=== PATIENT | female | born 1980 | race Caucasian/White ===

== ENCOUNTER 2017-02-04 22:05 | Inpatient (IN) | payer MEDICARE ==
[~2017-02-04] VITALS: Ht 160 cm; Wt 60.3 kg
[~2017-02-04 22:05] MED LIST: ALBUTEROL2.5 MG/0.5 INH; ALLEGRA30 MG PO; AMBIEN10 M1 PO; AMOXICILLIN500 MG PO; AMOXIL500 MG PO; ATIVAN1 MG PO; B12,B-12,B 12500 MC1 PO; BACTRIM DS 8001 TA1 PO; BENADRYL25 MG PO; CARAFATE1 GM/10 ML PO; CEFADROXIL500 M1 PO; CEPHALEXIN500 M1 PO; CIPRO500 MG PO; CLARITIN-D 10 M1 T21 PO; CLARITIN-D 12 H1 TAB PO; CLINDAMYCIN HC300 MG PO; CLORAZEPATE DI7.5 MG PO; CLORAZEPATE7.5 MG PO; FLONASE 0.05% 121 EA NAS; HYDROCODONE BIT1 T11 PO; KEFLEX500 M1 PO; KENALOG 0.1% C454 GM PO; KENALOG0.1% TP; LOMOTIL 0.025 M1 TA1 PO; MEDROL DOSEPAK4 MG PO; MOTRIN600 MG PO; MOTRIN800 MG PO; MULTI VITAMINS1 TAB PO; MULTIVITAMIN FO1 CAP PO; NAPROSYN500 MG PO; NORCO 5-325 TA1 EACH PO; OHM ALLERGY REL10 MG PO; OMEPRAZOLE MAGN20 M1 PO; PREDNICOT20 MG PO; PREDNISONE10 MG PO; PREDNISONE20 MG PO; PREPARATION H1 SUP R; PRILOSEC20 M1 PO; PROAIR HFA8.5 GM IH; PROVERA10 MG PO; ROBITUSSIN AC 110 ML PO; SEPTRA DS 800 M1 TAB PO; SERTRALINE HYDR50 MG PO; SILVADENE,SSD C50 GM T; Tranxene7.5 MG PO; ULTRAM50 MG PO; VICODIN 5/500 505 MG PO; VICODIN 500 MG-1 TAB PO; VITAMIN C500 MG PO; VITAMINS & MINE1 TAB; ZANTAC 150150 MG PO; ZITHROMAX Z PA250 MG PO; ZITHROMAX250 MG PO; ZOFRAN ODT4 MG SL; ZOLOFT50 MG PO
[2017-02-04 22:16] VITALS: BP 132/84
[2017-02-04 22:23] LABS: BASO % 0.4 % (0.0-1.0); EOS # 0.3 10*3/uL (0.0-0.4); EOS % 4.1 % (1.0-4.0); HEMATOCRIT 28.4 % (37.0-47.0); HEMOGLOBIN 8.8 g/dl (12.0-16.0); LYMPH # 3.4 10*3/uL (1.3-4.4); LYMPH % 41.7 % (27.0-41.0); MEAN CELL VOLUME 74.9 fl (81.0-99.0); MEAN CORPUSCULAR HGB 23.2 pg (27.0-31.0); MEAN PLATELET VOLUME 9.4 fl (9.6-12.3); MONO # 0.9 10*3/uL (0.1-1.0); MONO % 10.5 % (3.0-9.0); NEUT # 3.5 10*3/uL (2.3-7.9); NEUT % 43.1 % (47.0-73.0); PLATELET COUNT AUTOMATED 419 10*3/uL (130-400); RED BLOOD COUNT 3.79 10*6/uL (4.10-5.10); RED CELL DISTRI WIDTH 17.2 % (0-14.5); WHITE BLOOD COUNT 8.1 10*3/uL (4.8-10.8)
[2017-02-04 22:35] LABS: INTERNATIONAL NORM RATIO 0.9 (2.0-3.5); PROTHROMBIN TIME 9.9 SECONDS (9.0-12.4)
[2017-02-04 22:40] LABS: ALBUMIN 3.2 gm/dl (3.1-4.5); ALKALINE PHOSPHATASE 92 U/L (45-117); BILIRUBIN, TOTAL 0.3 mg/dl (0.2-1.0); BUN 10 mg/dl (7-24); CARBON DIOXIDE 25 mmol/L (21-32); CHLORIDE 107 mmol/L (98-107); EST GLOM FILT AFRICAN AMERICAN > 60 ml/min; GLUCOSE 99 mg/dL (65-99); MAGNESIUM 2.1 mg/dL (1.5-2.1); POTASSIUM 3.7 mmol/L (3.5-5.1); SGOT/AST 21 IU/L (3-35); SGPT/ALT 21 U/L (12-78); SODIUM 137 mmol/L (136-145); TOTAL PROTEIN 7.1 gm/dL (6.4-8.2)
[2017-02-04 22:44] LABS: TROPONIN I < 0.015 ng/ml (<0.045)
[2017-02-04 23:26] VITALS: BP 124/48
[2017-02-05 01:53] VITALS: BP 118/79
[2017-02-05 04:08] LABS: BASO % 0.5 % (0.0-1.0); EOS # 0.3 10*3/uL (0.0-0.4); EOS % 4.5 % (1.0-4.0); HEMATOCRIT 27.7 % (37.0-47.0); HEMOGLOBIN 8.7 g/dl (12.0-16.0); LYMPH # 3.3 10*3/uL (1.3-4.4); LYMPH % 43.3 % (27.0-41.0); MEAN CELL VOLUME 75.1 fl (81.0-99.0); MEAN CORPUSCULAR HGB 23.6 pg (27.0-31.0); MEAN CORPUSCULAR HGB CONC 31.4 g/dl (33.0-37.0); MONO # 0.7 10*3/uL (0.1-1.0); MONO % 9.9 % (3.0-9.0); NEUT # 3.1 10*3/uL (2.3-7.9); NEUT % 41.7 % (47.0-73.0); PLATELET COUNT AUTOMATED 419 10*3/uL (130-400); RED BLOOD COUNT 3.69 10*6/uL (4.10-5.10); RED CELL DISTRI WIDTH 17.1 % (0-14.5); WHITE BLOOD COUNT 7.5 10*3/uL (4.8-10.8)
[2017-02-05 04:20] LABS: BUN 10 mg/dl (7-24); CARBON DIOXIDE 23 mmol/L (21-32); CHLORIDE 108 mmol/L (98-107); EST GLOM FILT AFRICAN AMERICAN > 60 ml/min; GLUCOSE 99 mg/dL (65-99); POTASSIUM 3.5 mmol/L (3.5-5.1); SODIUM 139 mmol/L (136-145)
[2017-02-05 04:26] LABS: CHOLESTEROL 129 mg/dL (<200); FREE T4 1.14 ng/dl (0.76-1.46); HDL CHOLESTEROL 42 mg/dl (40-60); LDL CHOLESTEROL 72 mg/dL (9-159); TRIGLYCERIDES 74 mg/dl (<150); VLDL CHOLESTEROL 15 mg/dL (6-40)
[2017-02-05 04:28] LABS: HEMOGLOBIN A1c 6.1 % (4.8-5.6)
[2017-02-05 08:00] VITALS: BP 125/79
[2017-02-05 08:27] LABS: VITAMIN D, 25-HYDROXY 34.3 ng/mL (30-100)
[2017-02-05 08:28] LABS: FOLIC ACID 8.27 ng/mL (>5.38)
[2017-02-05] MEDS ORDERED: PRILOSEC20 M1 PO (10:45)
[2017-02-05] MEDS ORDERED: CLARITIN10 MG PO (10:46)
[2017-02-05] MEDS ORDERED: VITAMIN B12 1541 TAB PO (10:46)
[2017-02-05 12:00] VITALS: BP 99/56
[2017-02-05 16:00] VITALS: BP 108/56
[2017-02-05 19:50] VITALS: BP 95/56
[2017-02-06] VITALS: BP 112/77
[2017-02-06 08:00] VITALS: BP 115/78
[2017-02-06 12:00] VITALS: BP 122/76
== END 2017-02-06 14:38 | disposition home or self-care (01) | DRG 391 ==
LOC: ED 22:05 → EDHOLD 02-05 00:26 → 4E 02-05 00:26
PROVIDERS: Emergency Medicine Emergency Medical Services; Family Medicine
DX: K21.9 Gastro-esophageal reflux disease without esophagitis (principal); J18.9 Pneumonia, unspecified organism; E44.0 Moderate protein-calorie malnutrition; F33.40 Major depressive disorder, recurrent, in remission, unspecified; R07.89 Other chest pain; F41.9 Anxiety disorder, unspecified; J45.20 Mild intermittent asthma, uncomplicated; D50.9 Iron deficiency anemia, unspecified; R73.03 Prediabetes; Z79.899 Other long term (current) drug therapy; Z91.018 Allergy to other foods; Z82.49 Family history of ischemic heart disease and other diseases of the circulatory system; Z82.3 Family history of stroke; Z80.8 Family history of malignant neoplasm of other organs or systems; Z83.3 Family history of diabetes mellitus

== ENCOUNTER → 2017-04-17 | Day surgery (SDC) | payer MEDICARE ==
[~2017-04-17] VITALS: Ht 157.4 cm; Wt 54.4 kg
[~2017-04-17] MED LIST changes: +CLARITIN10 MG PO; +VITAMIN B12 1541 TAB PO
--- NOTE | ~2017-04-17 | O ---
[place], [place] OPERATIVE NOTE NAME: SIMEON PHELPS UNIT #: [id number] ROOM: DOCTOR: LIZETH MENENDEZ MD BIRTHDATE: [birth year] DOS: GASTRO-ENDOSCOPIC REPORT HISTORY OF PRESENT ILLNESS: A 37-year-old patient who has presented with chief complaint of atypical chest pain, epigastric distress, undergoing investigation. Cardiac workup has been negative. The patient on omeprazole. ALLERGIES: To no known medication. FAMILY HISTORY: Noncontributory. PAST SURGICAL HISTORY: Tubal ligation. PAST MEDICAL HISTORY: Gastritis, anxiety. SOCIAL HISTORY: Nonsmoker, social alcohol consumer. PROCEDURE: Today's procedure part of investigation is panendoscopy plus biopsy. PREMEDICATION: Versed and Diprivan. SCOPE: Olympus forward-viewing gastroscope Q10 video. REPORT: After putting the patient in the left lateral position and after application of lubricant to the scope, the scope was introduced. Thereafter, under direct visualization, I advanced through the length of esophagus without difficulty. Hiatal hernia was noticed, which was about 2 cm. Gastric pouch was entered, gastritis was seen. Antral biopsy obtained. Duodenal bulb, second and third part within normal limits. The patient extubated, tolerated procedure well. IMPRESSION: Gastritis, small hiatal hernia, status post biopsy. PLAN AND DISCUSSION: Continuation with omeprazole 20 mg daily, antireflux with elevation of the head of the bed 6 inches all time, Gaviscon or antiacid of choice. Follow up routinely with you in office, p.r.n. visit with us in [facility]. I thank you very much indeed for your kind referral. [place], [place] OPERATIVE NOTE NAME: SIMEON PHELPS UNIT #: [id number] ROOM: DOCTOR: LIZETH MENENDEZ MD BIRTHDATE: [birth year] LIZETH MENENDEZ MD CM:OPRECORD:OPERATIVE NOTE [id number] LIZETH MENENDEZ MD 04/17/17 1555 interface
[2017-04-17 10:55] VITALS: BP 110/74
[2017-04-17 12:02] VITALS: BP 96/71
[2017-04-17 12:17] VITALS: BP 108/70
[2017-04-17 12:37] VITALS: BP 111/60
== END | disposition home or self-care (01) ==
LOC: SDC 04-12 12:30
DX: K29.50 Unspecified chronic gastritis without bleeding (principal); K44.9 Diaphragmatic hernia without obstruction or gangrene; F41.9 Anxiety disorder, unspecified; Z98.51 Tubal ligation status; J45.909 Unspecified asthma, uncomplicated; F32.9 Major depressive disorder, single episode, unspecified; Z82.49 Family history of ischemic heart disease and other diseases of the circulatory system; Z80.9 Family history of malignant neoplasm, unspecified

== ENCOUNTER 2017-11-18 19:13 | Emergency (ER) | payer MEDICARE ==
[~2017-11-18] VITALS: Ht 160 cm; Wt 45.4 kg
[2017-11-18] MEDS ORDERED: ZYRTEC10 MG PO (19:27)
== END 2017-11-18 19:30 | disposition home or self-care (01) ==
LOC: ED 19:13
DX: J30.1 Allergic rhinitis due to pollen (principal)

== ENCOUNTER 2017-12-09 13:01 | Emergency (ER) | payer MEDICARE ==
[~2017-12-09] VITALS: Ht 160 cm; Wt 54.4 kg
[~2017-12-09 13:01] MED LIST changes: +ZYRTEC10 MG PO
[2017-12-09] MEDS ORDERED: PREDNISONE10 MG PO (13:26)
[2017-12-09] MEDS ORDERED: FLONASE ALLERG9.9 ML NAS (13:26)
== END 2017-12-09 14:57 | disposition home or self-care (01) ==
LOC: ED 13:01
DX: J02.9 Acute pharyngitis, unspecified (principal); T78.49XA Other allergy, initial encounter; R05 Cough; R09.81 Nasal congestion; F17.200 Nicotine dependence, unspecified, uncomplicated; Z91.018 Allergy to other foods; Z79.899 Other long term (current) drug therapy; Z98.51 Tubal ligation status; Y92.9 Unspecified place or not applicable

== ENCOUNTER 2017-12-22 22:02 | Emergency (ER) | payer MEDICARE ==
[~2017-12-22] VITALS: Ht 160 cm; Wt 54.4 kg
[~2017-12-22 22:02] MED LIST changes: +FLONASE ALLERG9.9 ML NAS
[2017-12-22 22:32] LABS: BASO # 0.1 10*3/uL (0.0-0.1); BASO % 0.6 % (0.0-1.0); EOS # 0.2 10*3/uL (0.0-0.4); EOS % 2.7 % (1.0-4.0); HEMATOCRIT 31.1 % (37.0-47.0); HEMOGLOBIN 9.6 g/dl (12.0-16.0); LYMPH # 3.6 10*3/uL (1.3-4.4); LYMPH % 41.4 % (27.0-41.0); MEAN CELL VOLUME 77.8 fl (81.0-99.0); MEAN CORPUSCULAR HGB CONC 30.9 g/dl (33.0-37.0); MEAN PLATELET VOLUME 9.1 fl (9.6-12.3); MONO # 0.9 10*3/uL (0.1-1.0); MONO % 9.7 % (3.0-9.0); NEUT % 45.4 % (47.0-73.0); PLATELET COUNT AUTOMATED 357 10*3/uL (130-400); RED CELL DISTRI WIDTH 16.7 % (0-14.5); WHITE BLOOD COUNT 8.8 10*3/uL (4.8-10.8)
[2017-12-22 22:49] LABS: ALBUMIN 3.1 gm/dl (3.1-4.5); ALKALINE PHOSPHATASE 86 U/L (45-117); BUN 12 mg/dl (7-24); CHLORIDE 108 mmol/L (98-107); CREATININE 0.91 mg/dL (0.55-1.02); LIPASE 123 U/L (73-393); POTASSIUM 3.9 mmol/L (3.5-5.1); SGOT/AST 14 IU/L (3-35); SGPT/ALT 17 U/L (12-78); SODIUM 141 mmol/L (136-145); TOTAL PROTEIN 6.6 gm/dL (6.4-8.2)
[2017-12-22 22:50] LABS: TROPONIN I < 0.015 ng/ml (<0.045)
[2017-12-23] MEDS ORDERED: ZOFRAN ODT4 MG SL (00:32)
[2017-12-23] MEDS ORDERED: ZANTAC 150150 MG PO (00:32)
== END 2017-12-23 00:53 | disposition home or self-care (01) ==
LOC: ED 22:02
PROVIDERS: Physician Assistant
DX: R10.13 Epigastric pain (principal); F17.200 Nicotine dependence, unspecified, uncomplicated; Z91.048 Other nonmedicinal substance allergy status; Z79.899 Other long term (current) drug therapy; Z98.51 Tubal ligation status

== ENCOUNTER 2017-12-25 13:31 | Emergency (ER) | payer MEDICARE ==
[~2017-12-25] VITALS: Ht 160 cm; Wt 54.4 kg
[2017-12-25 13:55] LABS: BILIRUBIN NEGATIVE (NEGATIVE); BLOOD 2+ (NEGATIVE); CLARITY CLEAR (CLEAR); COLOR YELLOW (YELLOW); GLUCOSE NEGATIVE (NEGATIVE); KETONE NEGATIVE (NEGATIVE); LEUKO ESTERASE 1+ (NEGATIVE); NITRITE NEGATIVE (NEGATIVE); PH 7.5 (5.0-9.0); SPECIFIC GRAVITY <= 1.005 (1.005-1.030); UROBILINOGEN 0.2 E.U./dl (0.2-1.0)
[2017-12-25 13:59] LABS: BASO % 0.3 % (0.0-1.0); EOS # 0.2 10*3/uL (0.0-0.4); EOS % 1.7 % (1.0-4.0); HEMATOCRIT 37.1 % (37.0-47.0); HEMOGLOBIN 11.3 g/dl (12.0-16.0); LYMPH # 2.1 10*3/uL (1.3-4.4); LYMPH % 18.6 % (27.0-41.0); MEAN CELL VOLUME 77.9 fl (81.0-99.0); MEAN CORPUSCULAR HGB 23.7 pg (27.0-31.0); MEAN CORPUSCULAR HGB CONC 30.5 g/dl (33.0-37.0); MEAN PLATELET VOLUME 9.5 fl (9.6-12.3); MONO # 0.9 10*3/uL (0.1-1.0); MONO % 8.2 % (3.0-9.0); NEUT % 70.1 % (47.0-73.0); PLATELET COUNT AUTOMATED 357 10*3/uL (130-400); RED BLOOD COUNT 4.76 10*6/uL (4.10-5.10); RED CELL DISTRI WIDTH 17.2 % (0-14.5); WHITE BLOOD COUNT 11.5 10*3/uL (4.8-10.8)
[2017-12-25 14:10] LABS: ALBUMIN 3.8 gm/dl (3.1-4.5); ALKALINE PHOSPHATASE 89 U/L (45-117); BUN 9 mg/dl (7-24); CHLORIDE 105 mmol/L (98-107); CREATININE 0.91 mg/dL (0.55-1.02); LIPASE 122 U/L (73-393); POTASSIUM 3.6 mmol/L (3.5-5.1); SGOT/AST 17 IU/L (3-35); SGPT/ALT 20 U/L (12-78); SODIUM 138 mmol/L (136-145); TOTAL PROTEIN 7.5 gm/dL (6.4-8.2)
[2017-12-25 14:14] LABS: BACTERIA 1+
[2017-12-25] MEDS ORDERED: MACROBID100 M1 PO (15:19)
== END 2017-12-25 15:26 | disposition home or self-care (01) ==
LOC: ED 13:31
PROVIDERS: Nurse Practitioner Family
DX: N39.0 Urinary tract infection, site not specified (principal); R31.9 Hematuria, unspecified; F17.200 Nicotine dependence, unspecified, uncomplicated; Z98.51 Tubal ligation status; Z79.899 Other long term (current) drug therapy; Z91.018 Allergy to other foods

== ENCOUNTER → 2018-01-10 | Outpatient (CLI) | payer MEDICARE ==
[~2018-01-10] MED LIST changes: +MACROBID100 M1 PO
[2018-01-10 12:10] LABS: BILIRUBIN NEGATIVE (NEGATIVE); BLOOD NEGATIVE (NEGATIVE); CLARITY CLEAR (CLEAR); COLOR YELLOW (YELLOW); GLUCOSE NEGATIVE (NEGATIVE); KETONE NEGATIVE (NEGATIVE); LEUKO ESTERASE NEGATIVE (NEGATIVE); NITRITE NEGATIVE (NEGATIVE); PH 6.5 (5.0-9.0)
[2018-01-10 12:50] LABS: BACTERIA 1+; MUCOUS 1+
== END | disposition home or self-care (01) ==
LOC: RESCLI 04:24
PROVIDERS: Internal Medicine
DX: N39.0 Urinary tract infection, site not specified (principal); R31.9 Hematuria, unspecified; K62.5 Hemorrhage of anus and rectum; K43.9 Ventral hernia without obstruction or gangrene; K21.9 Gastro-esophageal reflux disease without esophagitis; K44.9 Diaphragmatic hernia without obstruction or gangrene; R73.03 Prediabetes; D50.9 Iron deficiency anemia, unspecified; Z88.8 Allergy status to other drugs, medicaments and biological substances; Z79.899 Other long term (current) drug therapy

== ENCOUNTER 2018-02-06 17:49 | Emergency (ER) | payer MEDICARE ==
[~2018-02-06] VITALS: Wt 54.4 kg
[2018-02-06 19:01] LABS: BASO # 0.1 10*3/uL (0.0-0.1); BASO % 0.7 % (0.0-1.0); EOS # 0.2 10*3/uL (0.0-0.4); EOS % 2.2 % (1.0-4.0); HEMATOCRIT 33.6 % (37.0-47.0); HEMOGLOBIN 10.3 g/dl (12.0-16.0); LYMPH # 2.7 10*3/uL (1.3-4.4); LYMPH % 38.1 % (27.0-41.0); MEAN CELL VOLUME 78.7 fl (81.0-99.0); MEAN CORPUSCULAR HGB 24.1 pg (27.0-31.0); MEAN CORPUSCULAR HGB CONC 30.7 g/dl (33.0-37.0); MEAN PLATELET VOLUME 9.4 fl (9.6-12.3); MONO # 0.6 10*3/uL (0.1-1.0); MONO % 9.1 % (3.0-9.0); NEUT # 3.5 10*3/uL (2.3-7.9); NEUT % 49.8 % (47.0-73.0); PLATELET COUNT AUTOMATED 439 10*3/uL (130-400); RED BLOOD COUNT 4.27 10*6/uL (4.10-5.10); RED CELL DISTRI WIDTH 18.7 % (0-14.5)
[2018-02-06 19:18] LABS: ALBUMIN 3.7 gm/dl (3.1-4.5); ALKALINE PHOSPHATASE 81 U/L (45-117); BUN 8 mg/dl (7-24); CHLORIDE 107 mmol/L (98-107); CREATININE 0.96 mg/dL (0.55-1.02); POTASSIUM 4.2 mmol/L (3.5-5.1); SGOT/AST 16 IU/L (3-35); SGPT/ALT 21 U/L (12-78); SODIUM 141 mmol/L (136-145); TOTAL PROTEIN 7.4 gm/dL (6.4-8.2)
[2018-02-06 19:46] LABS: BILIRUBIN NEGATIVE (NEGATIVE); BLOOD NEGATIVE (NEGATIVE); CLARITY CLEAR (CLEAR); COLOR YELLOW (YELLOW); GLUCOSE NEGATIVE (NEGATIVE); KETONE TRACE (NEGATIVE); LEUKO ESTERASE TRACE (NEGATIVE); NITRITE NEGATIVE (NEGATIVE); SPECIFIC GRAVITY 1.025 (1.005-1.030); UROBILINOGEN 0.2 E.U./dl (0.2-1.0)
[2018-02-06 19:54] LABS: BACTERIA 1+
== END 2018-02-06 20:49 | disposition home or self-care (01) ==
LOC: ED 17:49
PROVIDERS: Nurse Practitioner
DX: S50.11XA Contusion of right forearm, initial encounter (principal); S80.12XA Contusion of left lower leg, initial encounter; S80.11XA Contusion of right lower leg, initial encounter; R51 Headache; R11.10 Vomiting, unspecified; Z79.899 Other long term (current) drug therapy; T74.21XA Adult sexual abuse, confirmed, initial encounter; V17.4XXA Pedal cycle driver injured in collision with fixed or stationary object in traffic accident, initial encounter; Y93.89 Activity, other specified; Y92.89 Other specified places as the place of occurrence of the external cause; Y99.8 Other external cause status

== ENCOUNTER 2018-10-26 15:53 | Emergency (ER) | payer MEDICARE ==
[~2018-10-26] VITALS: Ht 160 cm; Wt 47.2 kg
--- NOTE | ~2018-10-26 | EKG ---
[place], [place] ELECTROCARDIOGRAM REPORT NAME: SIMEON PHELPS UNIT #: [id number] ROOM: DOCTOR: EPIPHANY DRAFT REPORT BIRTHDATE: [birth year] [facility] Test Date: 2018-10-26 Test Time: 16:35:26 Pat Name: SIMEON PHELPS Department: Room: Gender: F Client Liaison: SHANNON : 1980 Requested By: PANFILO VELÁSQUEZ PA-C Order Number: [id number] Reading MD: Deysi Pepper MD Measurements Intervals [place] Rate: 85 P: 60 [place]: 93 QRS: 62 QRSD: 84 T: 26 QT: 368 QTc: 438 Interpretive Statements Sinus rhythm Short [place] interval Electronically Signed On 10-30-2018 8:07:38 PDT by Deysi Pepper MD CM:EKGRPT:ELECTROCARDIOGRAM REPORT [id number] PANFILO VELÁSQUEZ PA-C EPIPHANY DRAFT REPORT PANFILO VELÁSQUEZ PA-C
[~2018-10-26 15:53] MED LIST changes: +AVPAK AZITHROM250 MG PO; +PREDNISONE20 M1 PO; +PROAIR HFA8.5 GM INH
[2018-10-26 16:29] LABS: BASO % 0.4 % (0.0-1.0); EOS # 0.1 10*3/uL (0.0-0.4); EOS % 1.8 % (1.0-4.0); HEMATOCRIT 39.8 % (37.0-47.0); HEMOGLOBIN 12.7 g/dl (12.0-16.0); LYMPH % 27.6 % (27.0-41.0); MEAN CELL VOLUME 81.9 fl (81.0-99.0); MEAN CORPUSCULAR HGB 26.1 pg (27.0-31.0); MEAN CORPUSCULAR HGB CONC 31.9 g/dl (33.0-37.0); MEAN PLATELET VOLUME 9.8 fl (9.6-12.3); MONO # 0.6 10*3/uL (0.1-1.0); MONO % 8.1 % (3.0-9.0); NEUT # 4.6 10*3/uL (2.3-7.9); PLATELET COUNT AUTOMATED 418 10*3/uL (130-400); RED BLOOD COUNT 4.86 10*6/uL (4.10-5.10); RED CELL DISTRI WIDTH 16.6 % (0-14.5); WHITE BLOOD COUNT 7.4 10*3/uL (4.8-10.8)
[2018-10-26 16:45] LABS: ALKALINE PHOSPHATASE 77 U/L (45-117); BUN 10 mg/dl (7-24); CHLORIDE 105 mmol/L (98-107); CREATININE 1.05 mg/dL (0.55-1.02); POTASSIUM 2.9 mmol/L (3.5-5.1); SGOT/AST 14 IU/L (3-35); SGPT/ALT 16 U/L (12-78); SODIUM 139 mmol/L (136-145); TOTAL PROTEIN 7.8 gm/dL (6.4-8.2)
[2018-10-26 17:25] LABS: BILIRUBIN 1+ (NEGATIVE); BLOOD 3+ (NEGATIVE); CLARITY SL CLOUDY (CLEAR); COLOR YELLOW (YELLOW); GLUCOSE NEGATIVE (NEGATIVE); KETONE TRACE (NEGATIVE); LEUKO ESTERASE 2+ (NEGATIVE); NITRITE NEGATIVE (NEGATIVE)
[2018-10-26 17:33] LABS: BACTERIA 3+; RBC 31-40 rbc/hpf (0-2)
[2018-10-26] MEDS ORDERED: K-TAB10 MEQ PO (18:23)
== END 2018-10-26 18:27 | disposition home or self-care (01) ==
LOC: ED 15:53
PROVIDERS: Physician Assistant
DX: S20.212A Contusion of left front wall of thorax, initial encounter (principal); R55 Syncope and collapse; E86.0 Dehydration; E87.6 Hypokalemia; Z79.899 Other long term (current) drug therapy; J45.909 Unspecified asthma, uncomplicated; K21.9 Gastro-esophageal reflux disease without esophagitis; W18.39XA Other fall on same level, initial encounter; Y93.89 Activity, other specified; Y92.89 Other specified places as the place of occurrence of the external cause; Y99.8 Other external cause status

== ENCOUNTER 2019-03-19 11:10 | Emergency (ER) | payer MEDICARE ==
[~2019-03-19] VITALS: Wt 54.4 kg
[~2019-03-19 11:10] MED LIST changes: +K-TAB10 MEQ PO
[2019-03-19 11:33] LABS: BILIRUBIN NEGATIVE (NEGATIVE); BLOOD NEGATIVE (NEGATIVE); CLARITY CLEAR (CLEAR); COLOR YELLOW (YELLOW); GLUCOSE NEGATIVE (NEGATIVE); KETONE NEGATIVE (NEGATIVE); LEUKO ESTERASE NEGATIVE (NEGATIVE); NITRITE NEGATIVE (NEGATIVE); UROBILINOGEN 0.2 E.U./dl (0.2-1.0)
[2019-03-19 11:42] LABS: BACTERIA TRACE
[2019-03-19] MEDS ORDERED: SEPTDS PO (11:51)
[2019-03-23 02:01] LABS: GONOCOCCUS BY NAA Negative (Negative)
== END 2019-03-19 11:52 | disposition home or self-care (01) ==
LOC: ED 11:10
PROVIDERS: Nurse Practitioner Family
DX: L73.9 Follicular disorder, unspecified (principal); F17.200 Nicotine dependence, unspecified, uncomplicated; Z79.899 Other long term (current) drug therapy; Z98.51 Tubal ligation status

== ENCOUNTER 2019-07-12 15:49 | Emergency (ER) | payer SELFPAY ==
[~2019-07-12] VITALS: Ht 160 cm; Wt 54.9 kg
[~2019-07-12 15:49] MED LIST changes: +SEPTDS PO
[2019-07-12 16:30] LABS: BASO % 0.3 % (0.0-1.0); EOS % 0.3 % (1.0-4.0); HEMATOCRIT 31.7 % (37.0-47.0); HEMOGLOBIN 9.8 g/dl (12.0-16.0); LYMPH # 1.6 10*3/uL (1.3-4.4); LYMPH % 13.4 % (27.0-41.0); MEAN CELL VOLUME 81.1 fl (81.0-99.0); MEAN CORPUSCULAR HGB 25.1 pg (27.0-31.0); MEAN CORPUSCULAR HGB CONC 30.9 g/dl (33.0-37.0); MEAN PLATELET VOLUME 9.2 fl (9.6-12.3); MONO # 0.6 10*3/uL (0.1-1.0); MONO % 5.2 % (3.0-9.0); NEUT # 9.5 10*3/uL (2.3-7.9); NEUT % 80.6 % (47.0-73.0); PLATELET COUNT AUTOMATED 510 10*3/uL (130-400); RED BLOOD COUNT 3.91 10*6/uL (4.10-5.10); RED CELL DISTRI WIDTH 17.7 % (0-14.5); WHITE BLOOD COUNT 11.7 10*3/uL (4.8-10.8)
[2019-07-12 16:48] LABS: ACT PARTIAL THROMBO TIME 22.7 SECONDS (20.0-32.1); ALBUMIN 3.6 gm/dl (3.1-4.5); ALKALINE PHOSPHATASE 85 U/L (45-117); BUN 13 mg/dl (7-24); CHLORIDE 105 mmol/L (98-107); CREATININE 0.81 mg/dL (0.55-1.02); INTERNATIONAL NORM RATIO 0.9 (2.0-3.5); POTASSIUM 4.2 mmol/L (3.5-5.1); SGOT/AST 47 IU/L (3-35); SGPT/ALT 71 U/L (12-78); SODIUM 135 mmol/L (136-145); TOTAL PROTEIN 7.2 gm/dL (6.4-8.2)
[2019-07-12 16:59] LABS: TROPONIN I < 0.015 ng/ml (<0.045)
[2019-07-12 17:45] LABS: BILIRUBIN NEGATIVE (NEGATIVE); BLOOD NEGATIVE (NEGATIVE); CLARITY CLEAR (CLEAR); COLOR YELLOW (YELLOW); GLUCOSE NEGATIVE (NEGATIVE); KETONE NEGATIVE (NEGATIVE); LEUKO ESTERASE NEGATIVE (NEGATIVE); NITRITE NEGATIVE (NEGATIVE); PH 8.5 (5.0-9.0); UROBILINOGEN 0.2 E.U./dl (0.2-1.0)
[2019-07-12] MEDS ORDERED: ZOFRAN4 MG PO ×2 (18:23→18:46)
== END 2019-07-12 18:45 | disposition home or self-care (01) ==
LOC: ED 15:49
PROVIDERS: Emergency Medicine
DX: R11.2 Nausea with vomiting, unspecified (principal); R42 Dizziness and giddiness; F41.9 Anxiety disorder, unspecified; J45.909 Unspecified asthma, uncomplicated; F17.200 Nicotine dependence, unspecified, uncomplicated; Z91.018 Allergy to other foods; Z79.899 Other long term (current) drug therapy

== ENCOUNTER 2020-11-21 06:53 | Emergency (ER) | payer SELFPAY ==
[~2020-11-21] VITALS: Ht 160 cm; Wt 59.0 kg
[~2020-11-21 06:53] MED LIST changes: +ZOFRAN4 MG PO
[2020-11-21] MEDS ORDERED: CIPROFLOX-DEXA7.5 ML OT (08:18)
[2020-11-21] MEDS ORDERED: AVPAK AZITHROM250 M1 PO (08:19)
== END 2020-11-21 08:38 | disposition home or self-care (01) ==
LOC: ED 06:53
DX: H60.92 Unspecified otitis externa, left ear (principal); J32.9 Chronic sinusitis, unspecified; Z91.018 Allergy to other foods; Z79.899 Other long term (current) drug therapy; Z98.51 Tubal ligation status

== ENCOUNTER 2021-02-14 10:48 | Emergency (ER) | payer SELFPAY ==
[~2021-02-14] VITALS: Wt 63.5 kg
[~2021-02-14 10:48] MED LIST changes: +AVPAK AZITHROM250 M1 PO; +CIPROFLOX-DEXA7.5 ML OT
[2021-02-14] MEDS ORDERED: LIDEX 0.05% CRE15 GM T (11:15)
[2021-02-14] MEDS ORDERED: CEPHALEXIN500 M1 PO (11:15)
== END 2021-02-14 11:25 | disposition home or self-care (01) ==
LOC: ED 10:48
DX: T63.441A Toxic effect of venom of bees, accidental (unintentional), initial encounter (principal); L53.0 Toxic erythema; F17.200 Nicotine dependence, unspecified, uncomplicated; Z91.018 Allergy to other foods; Z79.899 Other long term (current) drug therapy; Z79.2 Long term (current) use of antibiotics; Z98.51 Tubal ligation status; Y92.89 Other specified places as the place of occurrence of the external cause

== ENCOUNTER 2023-06-19 23:21 | Emergency (ER) | payer MEDICARE ==
[~2023-06-19 23:21] MED LIST changes: +LIDEX 0.05% CRE15 GM T
[2023-06-19] MEDS ORDERED: MELATONIN1 MG PO (23:47)
[2023-06-20] MEDS ORDERED: MELOXICAM15 MG PO (00:03)
[2023-06-20] MEDS ORDERED: AMOX-CLAV 875-1 EACH PO (00:03)
[2023-06-20] MEDS ORDERED: REGLAN10 M1 PO (00:03)
== END 2023-06-20 01:21 | disposition home or self-care (01) ==
LOC: ED 23:21
DX: K02.9 Dental caries, unspecified (principal); K04.7 Periapical abscess without sinus; R11.2 Nausea with vomiting, unspecified; J45.909 Unspecified asthma, uncomplicated; F32.A Depression, unspecified; F41.9 Anxiety disorder, unspecified; Z91.018 Allergy to other foods; Z98.51 Tubal ligation status; Z98.890 Other specified postprocedural states; F17.210 Nicotine dependence, cigarettes, uncomplicated

== ENCOUNTER → 2025-04-08 | Outpatient (CLI) | payer MEDICARE ==
[~2025-04-08] MED LIST changes: +AMOX-CLAV 875-1 EACH PO; +MELATONIN1 MG PO; +MELOXICAM15 MG PO; +REGLAN10 M1 PO
== END | disposition home or self-care (01) ==
LOC: MAMMO 08:28
PROVIDERS: ATTEND Nurse Practitioner Women's Health
DX: Z12.31 Encounter for screening mammogram for malignant neoplasm of breast (principal); Z92.89 Personal history of other medical treatment

== ENCOUNTER → 2025-04-12 | Outpatient (CLI) | payer MEDICARE | END | disposition home or self-care (01) | LOC: US 08:51 | PROVIDERS: ATTEND Nurse Practitioner Family | DX: N85.2 Hypertrophy of uterus (principal); R10.9 Unspecified abdominal pain ==